=== PATIENT | female | born 1975 ===

== ENCOUNTER 2018-06-03 13:56 | Outpatient (CLI) | payer BC | END 2018-06-03 13:57 | disposition home or self-care (01) | LOC: SC 13:56 | PROVIDERS: ATTEND Internal Medicine Pulmonary Disease | DX: G47.10 Hypersomnia, unspecified (principal); G47.8 Other sleep disorders; R06.83 Snoring | CPT/HCPCS: 99203; 99212 ==

== ENCOUNTER 2018-12-16 09:24 | Outpatient (CLI) | payer BC | END 2018-12-16 09:25 | disposition home or self-care (01) | LOC: SC 09:24 | PROVIDERS: ATTEND Internal Medicine Pulmonary Disease | DX: G47.10 Hypersomnia, unspecified (principal); R41.89 Other symptoms and signs involving cognitive functions and awareness | CPT/HCPCS: 99212; 99213 ==

== ENCOUNTER 2019-01-31 19:50 | Outpatient (CLI) | payer BC | END 2019-01-31 19:51 | disposition home or self-care (01) | LOC: SC 19:50 | PROVIDERS: ATTEND Internal Medicine Pulmonary Disease | DX: G47.10 Hypersomnia, unspecified (principal) | CPT/HCPCS: 95810 ==

== ENCOUNTER 2019-02-18 09:14 | Outpatient (CLI) | payer BC | END 2019-02-18 09:15 | disposition home or self-care (01) | LOC: SC 09:14 | PROVIDERS: ATTEND Nurse Practitioner Family | DX: R06.83 Snoring (principal); R53.83 Other fatigue | CPT/HCPCS: 99212; 99214 ==

== ENCOUNTER 2023-07-08 13:00 | Outpatient (CLI) | payer BC ==
--- NOTE | 2023-07-08 13:50 | SLEEP CARE CONSULTATION ---
Information from patient questionnaire entered by Agustin Bauman. I have reviewed and concur with the information entered by Agustin Bauman. This document represents the service I personally performed and the decisions made by me, Vanessa Gallagher MD, [facility]. History of Present Illness Service Date and Time: 07/08/2023 1300 Reason for Visit: New patient Chief Complaint: reports: Unrefreshed sleep, Snoring, Excessive daytime sleepiness, Fatigue Date of Onset: ABOUT 1 YR Usual bedtime: 8PM Time it takes to fall asleep: 30MIN Snores at night: Yes Observed to quit breathing while asleep: Yes Sleeps alone due to snoring: No Number of times waking at night: 1-4 Reasons for waking at night: reports: Snoring, Bathroom, Other (NOISE) Toss, Turn, or Twitch while sleeping: Yes Recalls having dreams: Yes Usually gets out of bed at: 4613-6005 Feels refreshed in the morning: No Morning headache: Yes Sleepy or fatigued during the day: Yes Ever fallen asleep while driving: No Takes day naps: Yes Dreams during day naps: Yes Prior sleep studies: Yes Additional HPI information: I have the pleasure of seeing Ms. Garcia today regarding the possibility of her having obstructive sleep apnea. As you know, she is a 47-year-old lady who complains of loud snore, unrefreshed sleep, persistent fatigue, and excessive daytime sleepiness. She had an in-laboratory polysomnography here in 2019 that was negative for sleep-related breathing disorder. Since then, she has gained 42 lbs. Her snore has gotten louder, and her husbands says she appears to be struggling to breathe at night. She continues to feel tired and sleepy despite getting 9 10 hours of sleep a night. 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 Patient is and lives in [place]. Have you smoked in the past 12 months: No Alcohol use: Yes Alcohol amount and frequency: 1 WEEKLY Caffeine use: Yes Caffeine amount and frequency: 2-3 CUPS DAILY Family History Family history of sleep disordered breathing: Yes Family Hx Sleep Apnea: Mother: Snoring, Sleep apnea - Untreated, Father: Snoring, Sleep apnea - Untreated, Sibling: Snoring, Sleep apnea - Treated Allergies and Home Medications Known drug allergies: No Drug allergies reviewed: Yes Home medication list reviewed: Yes Review of Systems Weight gain over past 5 years: 25-30 Cardiovascular: reports: high blood pressure, palpitations, have to sleep sitting up Respiratory: denies: shortness of breath, wheeze, sputum production, chronic cough, other Gastrointestinal: reports: heartburn Urinary: denies: incontinence, frequency, urgency, impotence, other Neurological: denies: headaches, seizure, head trauma, disorientation, speech dysfunction, gait or balance problems, fainting or unconsciousness, other Psychiatric: reports: anxiety, depression Ear/Nose/Throat: reports: other (SPUTUM) Endocrine: reports: sluggishness, too hot or cold Immunologic: reports: sneezing Physical Exam Vital signs obtained and entered by: AGUSTIN Dodson MA Blood Pressure: 152/100 (LEFT ARM) Cuff size: regular Heart Rate: 70 O2 Saturation: 98 Height: 5 ft 5 in Weight: 220 lb 6.4 oz Body Mass Index: 36.6 BMI Classification: Obese Neck circumference: 15.75 Mood/affect: normal HEENT: No craniofacial malformation Neurologic: intact Impression and Plan IMPRESSION: 1. Obstructive Sleep Apnea-Hypopnea Syndrome, as evident by history of loud and irregular snoring, observed cessation of breath while asleep, unrefreshed sleep, cognitive impairment, and daytime hypersomnolence. Narrow oropharynx and obesity are common predisposing factors for obstructive sleep apnea-hypopnea syndrome. Untreated obstructive sleep apnea can also cause hyper tension. I recommend proceeding to polysomnography to confirm the diagnosis and to assess severity. I informed the patient of what the sleep studies involve and after some discussion, she agreed to proceed. However, because her insurance is [employer], a home sleep apnea test (HSAT) will be ordered. Plan: 1. Schedule a home sleep apnea test (HSAT). 2. Avoid long distance driving or when feeling sleepy. 3. Avoid alcohol, sedative and muscle relaxant around bedtime. 4. Attempt to lose weight. 5. Return for follow up after the test. Counseling Topics: Weight loss health impact Follow up with Sleep Care in: 1-2 months Plan: Home sleep test Visit Type: In Office Time Spent with Patient (minutes): 15 Provider Statement: I spent 100% of the Face to Face Visit with the patient with greater than 50% spent counseling the patient and coordination of care.
[2023-07-08 13:58] VITALS: BP 152/100
== END 2023-07-08 13:01 | disposition home or self-care (01) ==
LOC: SC 13:00
PROVIDERS: ATTEND Internal Medicine Pulmonary Disease
DX: G47.10 Hypersomnia, unspecified (principal); R06.83 Snoring; R06.81 Apnea, not elsewhere classified; G47.8 Other sleep disorders; R41.89 Other symptoms and signs involving cognitive functions and awareness; E66.9 Obesity, unspecified; Z68.36 Body mass index [BMI] 36.0-36.9, adult
CPT/HCPCS: 99202; 99212

== ENCOUNTER 2023-09-02 10:18 | Outpatient (CLI) | payer BC ==
--- NOTE | 2023-09-02 21:10 | SLEEP CARE CONSULTATION ---
Information from patient questionnaire entered by Agustin Bauman. I have reviewed and concur with the information entered by Agustin Bauman. This document represents the service I personally performed and the decisions made by me, Vanessa Gallagher MD, [facility]. History of Present Illness Service Date and Time: 09/02/2023 1018 Initial [place] Sleepiness Scale score: 15 (07/08/23) Current [place] Sleepiness Scale score: 6 (09/02/23) Additional HPI information: Ms. Mendez returned for follow up of the home sleep apnea test (HSAT) she had on 08/22/23. The test showed mild obstructive sleep apnea-hypopnea, with an AHI of 9.6/hr and dahiana SaO2 of 84%. During the study, the patient had 45 apneas (45 obstructive, 0 central, 0 mixed) and 50 hypopneas. The longest episode lasted 69.0 seconds. The respiratory events occurred more frequently during supine sleep (supine AHI was 16.9 and non-supine, 8.38). Hypoxemia, mild, with the lowest oxygen saturation of 84 % and 1.4 minutes with SaO2 under 90%. Baseline oxygen saturation was normal (Average oxygen saturation was 95%). The patient was informed of these findings. I explained to her the pathophysiology behind obstructive sleep apnea. We then spent quite a bit of time discussing different treatment options. For mild obstructive sleep apnea, surgery and oral appliance are alternatives to nasal CPAP therapy but in moderate or severe cases, nasal CPAP is the most effective and reliable treatment. After some discussion, she opted to go with the nasal CPAP therapy. I explained to her how CPAP machine works and what to expect when using the machine. She is encouraged to use CPAP every night especially in the first 2 to 3 nights in order to get used to it. She should call me or her CPAP supplier to discuss any mechanical problem that may occur. If she snores while wearing the CPAP or feels like she needs more air from the machine, she should notify me and I will increase the pressure. Sleep Study - Results Type of Sleep Study: Home sleep study (COMPLETED 08/22/23) Prior sleep studies: Yes Allergies and Home Medications Drug allergies reviewed: Yes Home medication list reviewed: Yes Allergy and home medication list: Allergies No Known Drug Allergies Allergy (Verified 08/30/23 10:32) Review of Systems Review of systems same as previous: Yes Physical Exam Vital signs obtained and entered by: AGUSTIN Dodson MA Blood Pressure: 144/92 (LEFT ARM) Cuff size: regular Heart Rate: 77 O2 Saturation: 97 Height: 5 ft 5 in Weight: 215 lb 12.8 oz Body Mass Index: 35.9 BMI Classification: Obese Impression and Plan IMPRESSION: 1. Obstructive Sleep Apnea-Hypopnea Syndrome, mild, associated with mild hypoxemia. Possibly, this is the cause of the patients symptoms of unrefreshed sleep, and excessive daytime sleepiness. As mentioned above, the patient will be started on an autoCPAP set between 4 and 12 cmH2O. Depending on her response and compliance she may be brought back for an overnight CPAP titration study. PLAN: 1. Prescription made for an autoCPAP, heated humidifier, and related supplies through [employer]. 2. Attempt to lose weight. 3. Return in one month for follow up. I will assess her response and compliance at that time. Prescriptions: Auto CPAP Follow up with Sleep Care in: 1-2 months Visit Type: In Office Time Spent with Patient (minutes): 15 Provider Statement: I spent 100% of the Face to Face Visit with the patient with greater than 50% spent counseling the patient and coordination of care.
[2023-09-02 21:12] VITALS: BP 144/92; O2SAT 97
== END 2023-09-02 10:19 | disposition home or self-care (01) ==
LOC: SC 10:18
PROVIDERS: ATTEND Internal Medicine Pulmonary Disease
DX: G47.33 Obstructive sleep apnea (adult) (pediatric) (principal); E66.9 Obesity, unspecified; Z68.35 Body mass index [BMI] 35.0-35.9, adult
CPT/HCPCS: 99212

== ENCOUNTER 2024-01-24 15:02 | Outpatient (CLI) | payer BC ==
--- NOTE | 2024-01-24 15:33 | Sleep Patient Instructions ---
Sleep Center Visit Summary - Patient Visit Information Reason for Visit: First compliance with PAP therapy - Patient Instructions Additional Instructions: You were here for follow up of CPAP therapy. You will be continued on CPAP therapy with pressure at 7-11 cmH2O. Please let us know if the pressure change is uncomfortable and we can make further adjustments of the pressure. You should follow up with sleep care in 1-2 months. You may contact us sooner for any questions or concerns. - Clinic Information Contact: [facility] [address] [place] [address] [email or web address] T: [phone]
--- NOTE | 2024-01-24 15:36 | SLEEP CARE CONSULTATION ---
Information from patient questionnaire entered by Agustin Bauman. I have reviewed and concur with the information entered by Agustin Bauman. This document represents the service I personally performed and the decisions made by me, Shiela Ashley ARNP. History of Present Illness Service Date and Time: 01/24/2024 1502 Previous diagnosis: Mild, Obstructive Sleep Apnea-Hypopnea Syndrome AHI: 9.6 (08/22/23) Reason for follow up: first compliance Equipment type: CPAP (RESMED AIR SENSE 11 NEED MACHINE) Equipment obtained from: Other ([facility]; getting supplies) Mask style: Full face Mask brand: [id number] Siesta Backup mask available: No Last cushion change: every 4 weeks Prior sleep studies: Yes Type of Sleep Study: Home sleep study (COMPLETED 08/22/23) HPI additional information: NENO HOFFMANN was diagnosed to have mild, AHI 9.6, obstructive sleep apnea- hypopnea syndrome and returned today for CPAP therapy first compliance follow- up. Sleep Study - Results Type of Sleep Study: Home sleep study (COMPLETED 08/22/23) Prior sleep studies: Yes CPAP Compliance Data - Data Reviewed with Patient Average duration of nightly device use: 9 hours 16 minutes Compliance rate %: 97 (10/16/23-11/14/23 29/30 days used) Current pressure setting (cmH2O): 4-12 (median 8.8, avg 11.5, max 11.8) Average residual AHI: 1.1 Central apnea: 0.1 Obstructive apnea: 0.7 Average large leak: 0.3 L/min Subjective Missed days of use due to: reports: other (dog sitting) Patient concerns: reports: aerophagia, mask discomfort, air blowing in eyes, mask leak noise, dry mouth, nose, throat (not every night). denies: condensation in mask/hose, nasal congestion, epistaxis Observed to snore while using device: No Current pressure setting perceived as: comfortable On therapy, patient: reports: sleeping better, awakening more refreshed, being more awake and alert during the day, more rested overall, other (taking few naps). denies: drowsiness while driving Initial [place] Sleepiness Scale score: 15 (07/08/23) Current [place] Sleepiness Scale score: 5 Allergies and Home Medications Known drug allergies: No Drug allergies reviewed: Yes Home medication list reviewed: Yes (no changes) Allergy and home medication list: Allergies No Known Drug Allergies Allergy (Verified 01/22/24 11:59) Review of Systems Review of systems same as previous: Yes (no changes) Physical Exam Vital signs obtained and entered by: AGUSTIN Dodson MA Blood Pressure: 155/105 (not consistent with BP medications) Cuff size: regular Heart Rate: 73 O2 Saturation: 98 Height: 5 ft 5 in Weight: 218 lb Body Mass Index: 36.2 BMI Classification: Obese Impression and Plan 1. Obstructive Sleep Apnea-Hypopnea Syndrome, mild, with good treatment compliance and good apnea control. On CPAP therapy, the patient has better sleep quality and is more rested overall. The patients pressure will be changed to autoCPAP 7-11 cmH20 to reflect pressure being used and reduce aerophagia. Patient advised to contact me if pressure change is uncomfortable so that it can be adjusted. Goals for apnea control discussed. Patient's apnea severity and rationale for treatment to reduce apnea, improve sleep quality and reduce cardiovascular and cerebrovascular events was reviewed. I also reviewed the benefit of consistent device use of CPAP for hypertension, diabetes, gastric reflux, depression/anxiety. 2. Obesity, unspecified. Currently patients BMI is 36.2. Obesity increases the risk of apnea, CPAP pressure requirements and overall health risks especially cardiovascular and diabetes. Thus patient is advised to lose weight. * Change auto CPAP pressure at 7-11 cmH2O * Notify me if snoring with mask or feeling that the pressure is too much or too little * Attempt to lose weight * Call this office if any problems using CPAP * Return for follow up in 1-2 months, or sooner if concerns arise Adjust device pressure to (cmH2O): 7-11 Counseling Topics: Weight loss health impact Follow up with Sleep Care in: 1-2 months Visit Type: In Office Time Spent with Patient (minutes): 20 Provider Statement: I spent 100% of the Face to Face Visit with the patient with greater than 50% spent counseling the patient and coordination of care.
[2024-01-24 15:45] VITALS: BP 155/105; O2SAT 98
== END 2024-01-24 15:03 | disposition home or self-care (01) ==
LOC: SC 15:02
PROVIDERS: ATTEND Nurse Practitioner Family
DX: G47.33 Obstructive sleep apnea (adult) (pediatric) (principal); E66.9 Obesity, unspecified; Z68.36 Body mass index [BMI] 36.0-36.9, adult
CPT/HCPCS: 99212; 99213

== ENCOUNTER 2024-04-10 08:48 | Outpatient (CLI) | payer BC ==
--- NOTE | 2024-04-10 09:02 | Sleep Patient Instructions ---
Sleep Center Visit Summary - Patient Visit Information Reason for Visit: 3-month follow-up - Patient Instructions Additional Instructions: You were here for follow up of CPAP therapy. You will be continued on CPAP therapy with pressure at 7-11 cmH2O. You should follow up with sleep care in 12 months. You may contact us sooner for any questions or concerns. - Clinic Information Contact: [facility] [address] [place] [address] [email or web address] T: [phone]
--- NOTE | 2024-04-10 09:07 | SLEEP CARE CONSULTATION ---
Information from patient questionnaire entered by Nano Bauamn. I have reviewed and concur with the information entered by Nano Bauman. This document represents the service I personally performed and the decisions made by me, Shiela Ashley ARNP. History of Present Illness Service Date and Time: 04/10/2024847 Previous diagnosis: Mild, Obstructive Sleep Apnea-Hypopnea Syndrome AHI: 9.6 (08/22/23) Reason for follow up: three month (3MONTH F/U) Equipment type: CPAP (RESMED AIR SENSE 11 NEED MACHINE; s/u 10/16/23) Equipment obtained from: Other ([facility]; getting supplies) Mask style: Full face Mask brand: Siesta, sm Backup mask available: Yes Last cushion change: 2 weeks Prior sleep studies: Yes Type of Sleep Study: Home sleep study (COMPLETED 08/22/23) HPI additional information: NENO HOFFMANN was diagnosed to have mild, AHI 9.6, obstructive sleep apnea- hypopnea syndrome and returned today for CPAP therapy three month follow-up. Sleep Study - Results Type of Sleep Study: Home sleep study (COMPLETED 08/22/23) Prior sleep studies: Yes CPAP Compliance Data - Data Reviewed with Patient Average duration of nightly device use: 8 HRS 55 MINS Compliance rate %: 96 (01/09/24-04/07/24; 86/90 days used) Current pressure setting (cmH2O): 7-11 Average residual AHI: 0.8 Central apnea: 0 Obstructive apnea: 0.5 Hypopnea: 0.2 Average large leak: 0.9 L/min Subjective Missed days of use due to: reports: other (slept downstairs) Patient concerns: denies: aerophagia, mask discomfort, air blowing in eyes, mask leak noise, condensation in mask/hose, nasal congestion, dry mouth, nose, throat, epistaxis Observed to snore while using device: No Current pressure setting perceived as: comfortable On therapy, patient: reports: sleeping better, awakening more refreshed, being more awake and alert during the day, more rested overall. denies: drowsiness while driving Initial [place] Sleepiness Scale score: 15 (07/08/23) Current [place] Sleepiness Scale score: 6 Allergies and Home Medications Known drug allergies: No Drug allergies reviewed: Yes Home medication list reviewed: Yes (no changes) Allergy and home medication list: Allergies No Known Drug Allergies Allergy (Verified 04/08/24 10:19) Review of Systems Review of systems same as previous: Yes (no changes) Physical Exam Vital signs obtained and entered by: SHIELA ROSA Blood Pressure: 153/106 (did not take BP meds/stress) Cuff size: regular (right arm) Heart Rate: 76 O2 Saturation: 98 Height: 5 ft 5 in Weight: 218 lb 12.8 oz Body Mass Index: 36.3 BMI Classification: Obese Impression and Plan 1. Obstructive Sleep Apnea-Hypopnea Syndrome, mild, with good treatment compliance and good apnea control. On CPAP therapy, the patient has better sleep quality and is more rested overall. Patient states she is surprised at how comfortable she is with using her CPAP. She is getting it on nightly with a few exceptions and feels the difference when using her CPAP. Patient has significant improvement of their sleep apnea and is satisfied with current CPAP therapy. Patient denies problems with oral dryness, nasal congestion, epistaxis, skin irritation or aerophagia. Patient's apnea severity and rationale for treatment to reduce apnea, improve sleep quality and reduce cardiovascular and cerebrovascular events was reviewed. I also reviewed the benefit of consistent device use of CPAP for hypertension, diabetes, gastric reflux, depression/anxiety. 2. Obesity, unspecified. Currently patients BMI is 36.3. Obesity increases the risk of apnea, CPAP pressure requirements and overall health risks especially cardiovascular and diabetes. Thus patient is advised to lose weight. 3. Elevated blood pressure reading in patient with hypertension. Her blood pressure was elevated today at 153/106 in the clinic today. She says she has been under a lot of stress lately and she has also been forgetting to take her medication regularly. She denies feeling unwell today. She knows the risks and says she will try to be better about taking her medication, monitoring her blood pressure and following up with her PCP as needed. * Continue auto CPAP pressure at 7-11 cmH2O * Notify me if snoring with mask or feeling that the pressure is too much or too little * Attempt to lose weight * Call this office if any problems using CPAP * Return for follow up in 12 months, or sooner if concerns arise Continue with device pressure at (cmH2O): 7-11 Counseling Topics: Spare mask, Weight loss health impact Follow up with Sleep Care in: 1 year Visit Type: In Office Time Spent with Patient (minutes): 20 Provider Statement: I spent 100% of the Face to Face Visit with the patient with greater than 50% spent counseling the patient and coordination of care.
[2024-04-10 09:17] VITALS: BP 153/106; O2SAT 98
== END 2024-04-10 08:49 | disposition home or self-care (01) ==
LOC: SC 08:48
PROVIDERS: ATTEND Nurse Practitioner Family
DX: G47.33 Obstructive sleep apnea (adult) (pediatric) (principal); E66.9 Obesity, unspecified; Z68.36 Body mass index [BMI] 36.0-36.9, adult
CPT/HCPCS: 99212; 99213